=== PATIENT | female | born 1980 | race Two or more races ===

== ENCOUNTER 2018-07-22 14:11 | Emergency (ER) | payer SELFPAY ==
[2018-07-22] MEDS ORDERED: LORazepam 1 MG Tab PO ONE (14:56)
--- NOTE | 2018-07-22 16:13 | EDM.PDOC ---
ED HPI GENERAL MEDICAL PROBLEM - General Chief Complaint: General Stated Complaint: HARD TIME TAKING DEEP BREATHS Time Seen by Provider: 07/22/18 14:25 Source of Information: Reports: Patient History Limitations: Reports: No Limitations - History of Present Illness INITIAL COMMENTS - FREE TEXT/NARRATIVE: The patient presents with shortness of breath. This started a couple days ago. She was seen at the clinic this weekend and found to have GERD. She has been taking prilosec. That is better but she is having some shortness of breath and and anxiety. She has no history of heart problems. She has no fever, chills, cough, congestion or runny nose. She has no chest pain now. She has no abdominal pain, nausea or vomiting. She has no history of medical problems. She has never had anxiety like this before. She has to take deep breaths to help with the shortness of breath. Onset: Gradual Duration: Day(s): Severity: Moderate Improves with: Reports: None Worsens with: Reports: None Associated Symptoms: Reports: Shortness of Breath. Denies: Chest Pain, Cough, Fever/Chills, Headaches, Nausea/Vomiting - Related Data Allergies Allergy/AdvReac Type Severity Reaction Status Date / Time No Known Allergies Allergy Verified 07/22/18 14:28 Home Meds: Home Meds LORazepam [Ativan] 1 mg PO TID PRN #20 tab 07/22/18 [Rx] Omeprazole Magnesium [Prilosec Otc] 20 mg PO BID 07/22/18 [History] Past Medical History Gastrointestinal History: Reports: GERD - Past Surgical History GI Surgical History: Reports: Cholecystectomy Female Surgical History: Reports: Section Social & Family History - Tobacco Use Smoking Status *Q: Never Smoker - Caffeine Use Caffeine Use: Reports: Coffee, Soda, Tea - Recreational Drug Use Recreational Drug Use: No ED ROS GENERAL - Review of Systems Review Of Systems: See Below Constitutional: Reports: No Symptoms HEENT: Reports: No Symptoms Respiratory: Reports: Shortness of Breath. Denies: Cough Cardiovascular: Reports: No Symptoms Endocrine: Reports: No Symptoms GI/Abdominal: Reports: No Symptoms : Reports: No Symptoms Musculoskeletal: Reports: No Symptoms Skin: Reports: No Symptoms ED EXAM, GENERAL - Physical Exam Exam: See Below Exam Limited By: No Limitations General Appearance: Alert, No Apparent Distress Ears: Normal External Exam Nose: Normal Inspection Head: Atraumatic, Normocephalic Neck: Normal Inspection Respiratory/Chest: No Respiratory Distress, Lungs Clear, Normal Breath Sounds Cardiovascular: Regular Rate, Rhythm, No Edema, No Murmur GI/Abdominal: Soft, Non-Tender, No Organomegaly, No Mass Back Exam: Normal Inspection Extremities: Normal Inspection EKG INTERPRETATION EKG Date: 07/22/18 Time: 15:02 Rhythm: NSR Rate (Beats/Min): 71 Page: Normal P-Wave: Present QRS: Normal ST-T: Normal QT: Normal Course - Vital Signs Last Recorded V/S: Last Vital Signs Temp 97.4 F 07/22/18 14:27 Pulse 85 07/22/18 14:27 Resp 20 07/22/18 14:27 BP 117/70 07/22/18 14:27 Pulse Ox 100 07/22/18 14:27 - Orders/Labs/Meds Orders: Active Orders 24 hr Category Date Time Status Cardiac Monitoring [RC] . DIRECTED Care 07/22/18 14:54 Active EKG Documentation Completion [RC] STAT Care 07/22/18 14:55 Active Chest 2V [CR] Stat Exams 07/22/18 14:56 Taken Labs: Laboratory Tests 07/22/18 07/22/18 07/22/18 Range/Units 15:08 15:08 15:08 WBC 6.49 (3.98-10.04) K/mm3 RBC 4.97 (3.98-5.22) M/mm3 Hgb 15.0 (11.2-15.7) gm/L Hct 43.0 (34.1-44.9) % MCV 86.5 (79.4-94.8) fl MCH 30.2 (25.6-32.2) pg MCHC 34.9 (32.2-35.5) g/dl RDW Std Deviation 39.3 (36.4-46.3) fL Plt Count 256 (182-369) K/mm3 MPV 11.9 (9.4-12.3) fl Neut % (Auto) 79.3 H (34.0-71.1) % Lymph % (Auto) 14.6 L (19.3-51.7) % Patrick % (Auto) 5.4 (4.7-12.5) % Eos % (Auto) 0.2 L (0.7-5.8) Baso % (Auto) 0.3 (0.1-1.2) % Neut # (Auto) 5.15 (1.56-6.13) K/mm3 Lymph # (Auto) 0.95 L (1.18-3.74) K/mm3 Patrick # (Auto) 0.35 (0.24-0.36) K/mm3 Eos # (Auto) 0.01 L (0.04-0.36) K/mm3 Baso # (Auto) 0.02 (0.01-0.08) K/mm3 D-Dimer, Quantitative < 0.19 L (0.19-0.50) mg/L Sodium 139 (136-145) mEq/L Potassium 3.0 L (3.5-5.1) mEq/L Chloride 102 (98-107) mEq/L Carbon Dioxide 23 (21-32) mEq/L Anion Gap 17.0 H (5-15) BUN 8 (7-18) mg/dL Creatinine 0.9 (0.55-1.02) mg/dL Est Cr Clr Drug Dosing 68.35 mL/min Estimated GFR (MDRD) > 60 (>60) mL/min BUN/Creatinine Ratio 8.9 L (14-18) Glucose 129 H (74-106) mg/dL Calcium 9.6 (8.5-10.1) mg/dL Total Bilirubin 0.7 (0.2-1.0) mg/dL AST 23 (15-37) U/L ALT 42 (14-59) U/L Alkaline Phosphatase 92 (46-116) U/L Troponin I < 0.017 (0.00-0.056) ng/mL Total Protein 8.4 H (6.4-8.2) g/dl Albumin 4.7 (3.4-5.0) g/dl Globulin 3.7 gm/dL Albumin/Globulin Ratio 1.3 (1-2) H. pylori IgG Antibody (NEGATIVE) 07/22/18 Range/Units 15:08 WBC (3.98-10.04) K/mm3 RBC (3.98-5.22) M/mm3 Hgb (11.2-15.7) gm/L Hct (34.1-44.9) % MCV (79.4-94.8) fl MCH (25.6-32.2) pg MCHC (32.2-35.5) g/dl RDW Std Deviation (36.4-46.3) fL Plt Count (182-369) K/mm3 MPV (9.4-12.3) fl Neut % (Auto) (34.0-71.1) % Lymph % (Auto) (19.3-51.7) % Patrick % (Auto) (4.7-12.5) % Eos % (Auto) (0.7-5.8) Baso % (Auto) (0.1-1.2) % Neut # (Auto) (1.56-6.13) K/mm3 Lymph # (Auto) (1.18-3.74) K/mm3 Patrick # (Auto) (0.24-0.36) K/mm3 Eos # (Auto) (0.04-0.36) K/mm3 Baso # (Auto) (0.01-0.08) K/mm3 D-Dimer, Quantitative (0.19-0.50) mg/L Sodium (136-145) mEq/L Potassium (3.5-5.1) mEq/L Chloride (98-107) mEq/L Carbon Dioxide (21-32) mEq/L Anion Gap (5-15) BUN (7-18) mg/dL Creatinine (0.55-1.02) mg/dL Est Cr Clr Drug Dosing mL/min Estimated GFR (MDRD) (>60) mL/min BUN/Creatinine Ratio (14-18) Glucose (74-106) mg/dL Calcium (8.5-10.1) mg/dL Total Bilirubin (0.2-1.0) mg/dL AST (15-37) U/L ALT (14-59) U/L Alkaline Phosphatase (46-116) U/L Troponin I (0.00-0.056) ng/mL Total Protein (6.4-8.2) g/dl Albumin (3.4-5.0) g/dl Globulin gm/dL Albumin/Globulin Ratio (1-2) H. pylori IgG Antibody Negative (NEGATIVE) Meds: Medications Discontinued Medications Generic Name Dose Route Start Last Admin Trade Name Freq PRN Reason Stop Dose Admin Lorazepam 1 mg 03/20/19 14:56 07/22/18 15:08 Ativan PO 07/22/18 14:57 1 mg ONETIME ONE Administration - Re-Assessments/Exams Free Text/Narrative Re-Assessment/Exam: 07/22/18 16:14 I ordered an EKG, CXR and labs. Her EKG shows a NSR with no acute changes. He CXR looks good. Her CBC is normal. Her K is low at 3. Her anion gap was elevated at 17. Her glucose was elevated at 129. Her D-dimer was negative. Her H-pylori was negative. I did give her some ativan and that helped. This may be all anxiety related. I will give her some ativan for at home. Departure - Departure Time of Disposition: 16:30 Disposition: Home, Self-Care 01 Condition: Good Clinical Impression: Anxiety, Hypokalemia GERD (gastroesophageal reflux disease) Qualifiers: Esophagitis presence: without esophagitis Qualified Code(s): K21.9 - Gastro- esophageal reflux disease without esophagitis - Discharge Information *PRESCRIPTION DRUG MONITORING PROGRAM REVIEWED*: No *COPY OF PRESCRIPTION DRUG MONITORING REPORT IN PATIENT FELIX: No Prescriptions: LORazepam [Ativan] 1 mg PO TID PRN #20 tab PRN Reason: Anxiety Referrals: PCP,None [Primary Care Provider] - Forms: ED Department Discharge Additional Instructions: Drink plenty of water. Take the prilosec daily. Follow the diet recommendations given to you over the weekend. Follow up with your provider tomorrow. Take the ativan every 8 hours as needed for anxiety. Please return if you are worse. - My Orders Last 24 Hours: My Active Orders 07/22/18 14:54 Cardiac Monitoring [RC] . DIRECTED 07/22/18 14:55 EKG Documentation Completion [RC] STAT 07/22/18 14:56 Chest 2V [CR] Stat - Assessment/Plan Last 24 Hours: My Active Orders 07/22/18 14:54 Cardiac Monitoring [RC] . DIRECTED 07/22/18 14:55 EKG Documentation Completion [RC] STAT 07/22/18 14:56 Chest 2V [CR] Stat
--- NOTE | 2018-07-22 17:15 | CR ---
Chest: Two views of the chest were obtained. Comparison: No previous chest x-ray. Heart size and mediastinum are normal. Lungs are clear. Bony structures are unremarkable. Surgical clips are seen from prior cholecystectomy. Impression: 1. Nothing acute is seen on two-view chest x-ray. Diagnostic code #2
== END 2018-07-22 16:55 | disposition home or self-care (01) ==
LOC: JD.ED 14:11
DX: K21.9 Gastro-esophageal reflux disease without esophagitis (principal); F41.9 Anxiety disorder, unspecified; E87.6 Hypokalemia
CPT/HCPCS: 36415; 71046; 80053; 84484; 85025; 85379; 86677; 93005; 99285; A9270; 93010; 99284

== ENCOUNTER 2022-01-22 07:01 | Day surgery (SDC) | payer SELFPAY ==
[~2022-01-22 07:01] MED LIST: Lactated Ringers 1,000 ML IV SCH; Lidocaine 1%/Sod Bicarbonate in NS 8.4% 1 ML Syringe IDERM PRN; Sodium Chloride 0.9% 10 ML Syringe FLUSH PRN; Sodium Chloride 0.9% 10 ML Syringe FLUSH SCH
[2022-01-22] MEDS ORDERED: Lidocaine 1% 4 ML ONE (07:18)
[2022-01-22] MEDS ORDERED: Propofol 200 MG/20 ML SDV ONE (07:18)
== END 2022-01-22 09:20 | disposition home or self-care (01) ==
LOC: JD.SDS 07:01 → MERGE 07:01 → JD.SDS 09:20
PROVIDERS: ATTEND Surgery
DX: K21.9 Gastro-esophageal reflux disease without esophagitis (principal); F41.9 Anxiety disorder, unspecified; E55.9 Vitamin D deficiency, unspecified; F17.200 Nicotine dependence, unspecified, uncomplicated; Z79.899 Other long term (current) drug therapy; Z98.890 Other specified postprocedural states
CPT/HCPCS: 43239; 81025; J2704; J7120; 00731

== ENCOUNTER 2022-03-18 03:24 | Emergency (ER) | payer SELFPAY ==
[2022-03-18] MEDS ORDERED: Sodium Chloride 0.9% 10 ML Syringe FLUSH PRN (03:47)
[2022-03-18] MEDS ORDERED: Prochlorperazine 10 MG in Sodium Chloride 0.9% 50 ML IV ONE (04:07)
[2022-03-18] MEDS ORDERED: Sodium Chloride 0.9% 1,000 ML IV ONE (04:07)
[2022-03-18 04:29] LABS: ESTIMATED GFR 112 mL/min (>60)
[2022-03-18] MEDS ORDERED: Potassium Chloride 20 MEQ Tab.ER PO ONE (05:22)
== END 2022-03-18 06:00 | disposition home or self-care (01) ==
LOC: JD.ED 03:24
DX: K52.9 Noninfective gastroenteritis and colitis, unspecified (principal); K21.9 Gastro-esophageal reflux disease without esophagitis; Z79.899 Other long term (current) drug therapy
CPT/HCPCS: 36415; 74177; 80053; 81001; 83690; 83735; 84702; 85025; 86140; 96361; 96365; 99284; J0780; J7030